=== PATIENT | female | born 1935 | race Caucasian/White ===

== ENCOUNTER 2023-03-06 16:44 | Emergency (ER) | payer MEDICARE ==
[~2023-03-06] VITALS: Ht 157.5 cm; Wt 72.6 kg
[2023-03-06 16:51] VITALS: BP_SYST 132; PULSE 103; RESP 18; TEMP 98.5; O2SAT 85
[2023-03-06] MEDS ORDERED: IPRATROPIUM/ALBUTEROL SULFATE 3 ML AMPUL.NEB (DUONEB) INH ONE ×2 (17:00→21:30)
[2023-03-06] MEDS ORDERED: METHYLPREDNISOLONE SOD SUCC 40 MG/ML VIAL IVP ONE (17:00)
[2023-03-06] MEDS ORDERED: PIPERACILLIN/TAZO 3.375 GM in D5W 50 ML IV ONE (17:00)
[2023-03-06] MEDS ORDERED: METO25TA6 PO (17:16)
[2023-03-06] MEDS ORDERED: POTA-178 PO (17:16)
[2023-03-06] MEDS ORDERED: ALEN70TA27 PO (17:16)
[2023-03-06] MEDS ORDERED: CITA10TA14 PO (17:16)
[2023-03-06] MEDS ORDERED: FURO20TA4 PO (17:16)
[2023-03-06] MEDS ORDERED: AMIO200T68 PO (17:16)
[2023-03-06 17:21] LABS: COVID19 ANTIGEN SOFIA FIA NEGATIVE (NEGATIVE)
[2023-03-06 17:22] LABS: INFLUENZA TYPE A Negative (NEGATIVE); INFLUENZA TYPE B NEGATIVE (NEGATIVE)
[2023-03-06 17:24] LABS: HEMATOCRIT 38.7 % (36-48); HEMOGLOBIN 13.1 g/dL (12.0-16.0); MEAN CORPUSCULAR HEMOGLOBIN 33 pg (27-31); MEAN CORPUSCULAR HGB CONC 34 % (32-36); MEAN CORPUSCULAR VOLUME 96 fL (79.0-98.0); PLATELET COUNT (AUTO) 286 K/uL (130-430); RED BLOOD CELL COUNT(AUTO) 4.03 MIL/uL (4.2-6.2); RED CELL DISTRIBUTION WIDTH 13.5 % (9.0-15.0); WHITE BLOOD COUNT (AUTO) 27.3 K/uL (4.8-10.8)
[2023-03-06 17:38] LABS: BAND % (MANUAL) 7 % (0-6); BASOPHILS % (MANUAL) 0 % (0-2); EOSINOPHILS % (MANUAL) 0 % (0-7); INR 1.2 (0.8-1.2); LYMPHOCYTES % (MANUAL) 8 % (20-46); MONOCYTES % (MANUAL) 5 % (0-11); PLATELET ESTIMATE ADEQUATE (ADEQUATE)
[2023-03-06 17:40] LABS: ANION GAP 10 (5-15); CALCIUM 8.7 mg/dL (8.4-11.0); CARBON DIOXIDE 27 mmol/L (23-29); CHLORIDE 95 mmol/L (98-107); CREATININE 1.09 mg/dL (0.55-1.30); GLUCOSE 147 mg/dL (74-106); POTASSIUM 3.9 mmol/L (3.5-5.1); SODIUM SERUM 132 mmol/L (136-145); UREA NITROGEN, BLOOD 16 mg/dL (8-21)
[2023-03-06 17:46] LABS: ALANINE AMINOTRANSFERASE 23 U/L (12-78); ALBUMIN 2.6 g/dL (3.4-4.8); ASPARTATE AMINOTRANSFERASE 32 U/L (10-37); BILIRUBIN,DIRECT 0.2 mg/dL (0.0-0.3); TOTAL BILIRUBIN 0.5 mg/dL (0.0-1.0); TOTAL PROTEIN, SERUM 7.6 g/dL (6.4-8.3)
[2023-03-06] MEDS ORDERED: PIPERACILLIN/TAZOBACTAM 3.375 GM/VIAL (ZOSYN) IV ONE (18:05)
[2023-03-06] MEDS ORDERED: NACL 0.9% 1,000 ML IV ONE (18:45)
[2023-03-06] MEDS ORDERED: NACL 0.9% 500 ML IV ONE ×2 (18:51→19:00)
[2023-03-06] MEDS ORDERED: iohexoL 350 mgI/mL, 100 ML INFUS..BTL IV ONE (19:18)
[2023-03-07 00:18] VITALS: BP_SYST 146; PULSE 75; RESP 14; TEMP 96.4; O2SAT 93
== END 2023-03-07 00:13 | disposition short-term general hospital (02) ==
LOC: SED 16:44
DX: J18.9 Pneumonia, unspecified organism (principal); J44.9 Chronic obstructive pulmonary disease, unspecified; M54.6 Pain in thoracic spine; I50.9 Heart failure, unspecified; Z88.0 Allergy status to penicillin; Z88.2 Allergy status to sulfonamides; Z79.899 Other long term (current) drug therapy; Z20.822 Contact with and (suspected) exposure to COVID-19
CPT/HCPCS: 99291; 96365; 71275; 71045; 96367; 96361; 96375; 87426; 85027; 80076; 80048; 83880; 85007; 85379; 85610; 85730; 87040; 84484; 36415; 93005; 83605; 87804 ×2; 76376; 94640; Q9967; J1956; J2543; J7030; J1030